=== PATIENT | female | born 1985 | race Caucasian/White ===

== ENCOUNTER 2022-02-10 15:08 | Day surgery (SDC) | payer MEDICARE ==
[2022-02-10] MEDS ORDERED: Sodium Chloride 0.9(Preservative Free) 10 ML IJ ONE (15:09)
[2022-02-10] MEDS ORDERED: Xylocaine 1% Vial 30 ML PF IJ ONE (15:09)
[2022-02-10] MEDS ORDERED: Decadron 4 MG INJ IV ONE (15:09)
[2022-02-10] MEDS ORDERED: Lactated Ringers 1,000 ML IV ONE (19:31)
--- NOTE | 2022-02-10 20:39 | XRAY ---
Indication: Cervical MAYANK. Intraoperative fluoroscopy provided for 25 seconds. 2 digital spot images submitted for interpretation demonstrates midline posterior needle tip projecting just posterior to cervical thoracic junction. Small amount of contrast injected for needle tip placement. Correlate with intraoperative findings/report.
--- NOTE | 2022-02-11 08:55 | XRAY ---
29 seconds fluoroscopy time in surgery for cervical MAYANK.
== END 2022-02-10 18:42 | disposition home or self-care (01) ==
LOC: SDC-PAIN 15:08
PROVIDERS: ATTEND Psychiatry & Neurology Pain Medicine
DX: M54.12 Radiculopathy, cervical region (principal); Z79.899 Other long term (current) drug therapy
CPT/HCPCS: 62321; 72040; 77003; 84703; J1100; J2001; Q9966

== ENCOUNTER 2024-11-07 14:17 | Day surgery (SDC) | payer MEDICARE ==
[2024-11-07] MEDS ORDERED: Sodium Chloride 0.9(Preservative Free) 10 ML IJ ONE (14:18)
[2024-11-07] MEDS ORDERED: dexAMETHasone sodium phosphate IJ ONE (14:18)
[2024-11-07 15:15] LABS: HCG SERUM TEST NEGATIVE (NEGATIVE)
[2024-11-07] MEDS ORDERED: propofoL IV ONE (16:03)
--- NOTE | 2024-11-07 16:54 | XRAY ---
24 seconds of fluoroscopy was used in surgery for a right L4-S1 transforaminal MAYANK.
--- NOTE | 2024-11-08 09:06 | XRAY ---
24 seconds of fluoroscopy was used in surgery for a right L4-S1 transforaminal MAYANK.
== END 2024-11-07 16:46 | disposition home or self-care (01) ==
LOC: SDC-PAIN 14:17
PROVIDERS: ATTEND Psychiatry & Neurology Pain Medicine
DX: M54.16 Radiculopathy, lumbar region (principal)
CPT/HCPCS: 36415; 72100; 77003; 84703; J1100; J2704

== ENCOUNTER 2025-01-31 10:14 | Day surgery (SDC) | payer MEDICARE ==
[2025-01-31] MEDS: TYLENOL EXTRA STRENGTH 500 MG PO ONE (10:25)
[2025-01-31] MEDS: Decadron 4 MG PO ONE (10:26)
[2025-01-31] MEDS: celeBREX 100 MG PO ONE (10:26)
[2025-01-31] MEDS: CEFAZOLIN 2 GM/100 ML NaCl 2 GM/100 ML IVPB IV SCH (10:26)
[2025-01-31] MEDS: NEURONTIN PO ONE (10:26)
[2025-01-31] MEDS: Lactated Ringers 1,000 ML IV SCH (10:26)
[2025-01-31 10:52] LABS: Hematocrit 44.3 % (34.1-44.9); Hemoglobin 14.4 g/dL (11.2-15.7); Mean Cell Volume 86.2 fL (79.4-94.8); Mean Corpuscular Hgb Concent. 32.5 g/dL (32.2-35.5); Mean Platelet Volume 9.4 fL (9.4-12.3); Platelet Count 289 x10^3/uL (182-369); Red Blood Count 5.14 x10^6/uL (3.93-5.22); Red Cell Distribution Width 12.9 % (11.7-14.4); White Blood Count 6.7 x10^3/uL (3.98-10.04)
[2025-01-31 11:21] LABS: ALBUMIN 4.3 g/dL (3.5-5.0); ANION GAP 14.4 MEQ/L (5-15); BILIRUBIN,TOTAL 0.4 mg/dL (0.2-1.3); Calcium 9.3 mg/dL (8.4-10.2); Creatinine 1 0.63 mg/dL (0.52-1.04); Direct Bilirubin 0.2 mg/dL (0.0-0.4); EST GLOMERULAR FILTRATION RATE 115.7 ML/MIN; HCG SERUM TEST NEGATIVE (NEGATIVE); Potassium 4.1 mmol/L (3.5-5.1); Total Protein 7.2 g/dL (6.3-8.2)
[2025-01-31] MEDS ORDERED: EXPAREL 133 MG/10 ML VIAL IJ ONE (11:58)
[2025-01-31] MEDS ORDERED: Marcaine Mpf 0.5% Vial 30 Ml ONE (11:58)
[2025-01-31] MEDS ORDERED: Versed 2 MG/2 ML Injection ONE (12:05)
[2025-01-31] MEDS ORDERED: propofoL IV ONE ×2 (12:22→14:28)
[2025-01-31] MEDS ORDERED: Zofran 4 MG/2 ML VIAL ONE ×2 (12:25→15:54)
[2025-01-31] MEDS ORDERED: dexAMETHasone sodium phosphate ONE (12:25)
[2025-01-31] MEDS ORDERED: ROCURONIUM BROMIDE IV ONE (12:25)
[2025-01-31] MEDS ORDERED: Epinephrine Preservative Free 1 MG/ML ONE (13:14)
[2025-01-31] MEDS ORDERED: SUBLIMAZE 100 MCG/2 ML ONE ×2 (13:36→15:14)
[2025-01-31] MEDS ORDERED: BRIDION 200MG/2ML IV ONE (13:42)
--- NOTE | 2025-01-31 14:09 | XRAY ---
Indication: Right ankle arthroscopy with synovectomy, repair of osteochondral defect, subtalar joint arthrotomy, and peroneal tendon debridement. Intraoperative fluoroscopy provided for 13 seconds. 4 digital spot images submitted for interpretation demonstrates manual manipulation ankle joint. Correlate with intraoperative findings/report.
[2025-01-31] MEDS ORDERED: Lactated Ringers 1,000 ML IV ONE (14:32)
--- NOTE | 2025-01-31 15:33 | XRAY ---
13 seconds of fluoroscopy were used in surgery for a right ankle arthroscopy with complete synovectomy, repair of osteochondral defect, subtalar joint open arthrotomy, peroneal tendon debridement, and gastrocnemius recession.
[2025-01-31] MEDS ORDERED: DILAUDID 0.5 MG/0.5 ML SYRINGE ONE (15:34)
[2025-01-31 16:20] VITALS: TEMP 98.3
[2025-01-31 16:39] VITALS: BP 125/79; PULSE 101; RESP 20; O2SAT 98
--- NOTE | 2025-02-01 12:39 | OP ---
SURGERY DATE/TIME: 01/31/2025 PREOPERATIVE DIAGNOSES: 1) Right ankle pain. 2) 3) Osteochondral defect. 4) Subtalar joint loose bodies. 5) Peroneus brevis tendonitis. 6) Peroneus longus tenosynovitis. 7) Gastrocnemius equinus. 8) Calcaneal exostosis. POSTOPERATIVE DIAGNOSES: 1) Right ankle pain. 2) 3) Osteochondral defect. 4) Subtalar joint loose bodies. 5) Peroneus brevis tendonitis. 6) Peroneus longus tenosynovitis. 7) Gastrocnemius equinus. 8) Calcaneal exostosis. 9) Low-lying muscle belly of peroneus brevis. PROCEDURES: 1) Ankle arthroscopy with complete synovectomy. 2) Ankle arthroscopy with microfracture of osteochondral defect x2, talus. 3) Subtalar joint arthrotomy. 4) Peroneus brevis tendon debridement. 5) Peroneus longus tenosynovectomy. 6) Gastrocnemius recession. 7) Calcaneal exostectomy. SURGEON: George Serrano DPM ASSISTANTS: BETINA Anne; Jody Brock, [employer] Supervisor; and Adrian Prajapati NP-C. ANESTHESIA: General plus a preoperative popliteal and saphenous block. See anesthesia report for details. HEMOSTASIS: Thigh tourniquet set to 300 mmHg for a total of 55 total tourniquet minutes. ESTIMATED BLOOD LOSS: Approximately 5 mL. MATERIALS: 4-0 Monocryl, 3-0 nylon. INJECTABLES: See anesthesia report for details. INDICATIONS: The patient is a very pleasant 39-year-old female who was seen by a nurse practitioner for several months prior to presenting to my service. She did have an MRI which was obtained, demonstrating some osteochondral defects to the anteromedial and central portions of the tibiotalar joint on the talar side. She was having a significant amount of pain to the ankle joint, as well as to the lateral aspect of the ankle, likely secondary to compensation and mechanical injury of the peroneal tendons. As a result, stress testing was performed in clinic, demonstrating no significant laxity; however, we did discuss this as a possibility of addressing surgically intraoperatively. The patient was made aware of all options and decided to proceed due to the timeline of pain and discomfort, as well as failure of conservative therapy, to proceed with surgical interventions. All risks, complications, and benefits of surgical intervention were discussed including, but not limited to, infection, hematoma, seroma, possibility of delayed wound healing, non-wound healing, and possible failure of surgical interventions. Plenty of time was allowed for the patient to ask questions, which were answered to her apparent satisfaction. It is at this time we decided to proceed. DESCRIPTION OF PROCEDURE AND FINDINGS: Patient was brought into the PACU prior to the procedure and provided a popliteal and saphenous block. Once the block took effect, the patient was brought into the operating room and placed on the operating room table in the supine position. General anesthesia was administered until the patient was adequately sedated. A well-padded thigh tourniquet was applied to the patient's right thigh, and the tourniquet was set to 300 mmHg. The right lower extremity was prepped and draped in the typical sterile fashion and lowered onto the surgical field at this time. At this time, attention was directed to the medial and lateral malleolus, as well as a palpable dell at the anterior aspect of the right ankle where landmarks were identified utilizing a skin marker. Utilizing the skin marker, the lines were connected, and our entry sites for anteromedial and anterolateral portal sites were drawn out. At the medial aspect of the tibialis anterior tendon, an 18-gauge needle with 50 mL of lactated Ringer's was injected at the anteromedial portal site with the characteristic dorsiflexion of the ankle joint. Once this occurred, an 11 blade was utilized to make a skin incision which was carried down to the level of the capsule with a curved mini hemostat to puncture the anterior ankle capsule. Once this was performed, a blunt obturator with trocar was introduced into the ankle joint. The obturator was then removed, and then a 4.0 mm 30-degree straight camera was introduced and inspection of the joint took place. Immediately, a significant amount of synovitis was encountered at the anterior capsule. Once this was inspected, a shaver was introduced after an incision with an 11 blade and a blunt dissection down to the level of the lateral capsule with a curved mini. A 3.4 mm shaver was then introduced into the portal and the synovectomy took place of points of interest to the lateral aspect of the ankle joint as well as the lateral gutter. The low-lying AITFL ligament was debrided, also known as the [place] ligament. From that standpoint, attention was directed medially to the medial gutter where a complete synovectomy was done. It was at the medial aspect of the talar side of the joint where an osteochondral defect was encountered. Due to the james of the fluid, the osteochondral defect was obviously lifted and a loose body. From that standpoint, decision was made to proceed with probing the whole entire area over the medial and central aspects of the talar OCDs that were seen on MRI had gouges within the cartilage and delaminations. Probe was then pressed into the cartilage and was able to be pressed to the subchondral bone. At this time, decision was made to proceed with the microfracture of the osteochondral defect where first the degenerated cartilage was shaved, and then utilizing a 30-degree chondral pick, exploration/microfracture were carried down to the level of the subchondral plate until a small oil drop was seen, indicating we had accessed the bone marrow. From that standpoint, the shaver was brought back in, and further debridement took place of the anterior, medial, lateral, and posterior aspects of the ankle joint. Once this occurred, the scope was withdrawn from the joint. An Esmarch was utilized to exsanguinate the leg. At this time, stress views were taken of an anterior drawer and a talar tilt, of which neither was positive. From that standpoint, we moved on to the peroneal tendons where a linear incision was made at the posterior one-third of the fibula just above the superior peroneal retinaculum and extending the path of the peroneus brevis tendon. On inspection of the peroneus brevis, there did look to be a very low-lying and robust muscle belly on the peroneus brevis which was resected. It was noted that when the foot was pulled into an inverted position that this did overstuff the superior peroneal retinaculum leading to some pathology. This was debrided. The tendon was inspected. There was flattening of the peroneus brevis tendon at the posterior aspect of the fibula, however, no significant tears or significant tendon degeneration other than the low-lying muscle belly. The peroneus longus was inspected, and there was a significant amount of tenosynovitis that was noted surrounding the tendon sheath that once incised, a significant amount of inflamed synovial fluid was released from this structure. Attention was then directed to the subtalar joint where a 15 blade was utilized to make an incision, and once again, a significant amount of inflamed synovial fluid was encountered. There were some loose bodies at the lateral aspect of the posterior facet that were retrieved utilizing a rongeur. Once this occurred, copious amounts of sterile saline were utilized to flush the surgical site. The lateral wall of the calcaneus was inspected, and the septum the peroneus brevis and peroneus longus at the lateral wall of the calcaneus was calcified and causing some mechanical irritation to the peroneus brevis. From that standpoint, decision was made to resect the septum, which was carried out utilizing a rongeur and a 15 blade. This was hand rasped down, and then bone wax was applied to the lateral aspect of the calcaneal wall. The small amount of degradation of the peroneus brevis was repaired utilizing 4-0 Monocryl at this time. Once this was performed, range of motion was checked, and it did look as though there was nothing impinging in the superior peroneal retinaculum or the lateral ankle ligaments. Subtalar joint was free of any loose bodies that were encountered previously. From that standpoint, once again, the patient was assessed with the foot and knee in a dorsiflexed position as well as extended at the level of the knee, showing her gastrocnemius equinus. We did decide to proceed with a gastrocnemius recession, which was carried out at the palpable dell at the posterior aspect of the posteromedial calf where a linear incision was made approximately 2 cm to 3 cm in length. Once this was carried down to the fascial layer, the fascial layer was incised, and blunt dissection was carried out to the level of the gastroc aponeurosis. Once encountered, a pediatric speculum was then introduced into the site and turned 90 degrees. Looking into this deficit and being careful not to damage the sural nerve on the opposite end, a 10 blade was utilized to incise the crural fascia with hemorrhaging of the gastrocnemius muscle belly as we resected the aponeurosis. Once this was performed, copious amounts of sterile saline were utilized to flush all of the surgical sites. A 4-0 Monocryl and 2-0 Vicryl were utilized in a simple interrupted buried-type fashion for closure of the wound sites subcutaneously. A 3-0 nylon was then utilized in a horizontal mattress-type fashion for closure of all the remaining sites. A dressing consisting of iodine, Adaptic, 4 x 4, Kerlix, ABD, and a well-padded posterior splint was applied to the patient's right lower extremity with the foot orthogonal relative to the longitudinal axis of the leg. Patient was then reversed from anesthesia and returned to the postoperative anesthesia care unit with vital signs stable and vascular status intact. Patient handled the anesthesia as well as the procedure without significant complication. Postoperative orders as indicated in the patient's discharge chart.
== END 2025-01-31 17:15 | disposition home or self-care (01) ==
LOC: SDC 10:14
PROVIDERS: ATTEND Podiatrist Foot & Ankle Surgery
DX: M76.71 Peroneal tendinitis, right leg (principal); M79.671 Pain in right foot; M25.571 Pain in right ankle and joints of right foot; D16.31 Benign neoplasm of short bones of right lower limb; M21.371 Foot drop, right foot; M25.471 Effusion, right ankle; M95.8 Other specified acquired deformities of musculoskeletal system; M62.461 Contracture of muscle, right lower leg; M21.621 Bunionette of right foot; M77.31 Calcaneal spur, right foot; M21.961 Unspecified acquired deformity of right lower leg; M24.071 Loose body in right ankle
CPT/HCPCS: 27658; 27680; 27687; 28050; 28118; 29891; 29898; 36415; 73610; 76000; 76937; 80053; 82248; 84703; 85027; J0171; J0666; J0690; J1100; J1171; J2250; J2405; J2704; J3010; A9270-GY

== ENCOUNTER 2025-06-26 12:30 | Day surgery (SDC) | payer MEDICARE ==
[2025-06-26] MEDS ORDERED: methylPREDNISolone acetate IM ONE (12:31)
[2025-06-26] MEDS ORDERED: LIDOCAINE HCL 2% 100 MG/5 ML IJ ONE (12:31)
[2025-06-26 13:08] LABS: HCG URINE TEST NEGATIVE (NEGATIVE)
[2025-06-26] MEDS ORDERED: propofoL IV ONE (14:59)
--- NOTE | 2025-06-26 16:48 | XRAY ---
Indication: Bilateral L4-S1 MBB. Intraoperative fluoroscopy provided for 16 seconds. Single digital spot image submitted for interpretation demonstrates posterior needle tips projecting over expected left and right L4-S1 nerve roots. Correlate with intraoperative findings/report.
[2025-06-26] MEDS ORDERED: Lactated Ringers 1,000 ML IV ONE (17:53)
--- NOTE | 2025-06-26 19:13 | XRAY ---
16 seconds of fluoroscopy were used in surgery for a bilateral L4-S1 MBB.
== END 2025-06-26 15:30 | disposition home or self-care (01) ==
LOC: SDC-PAIN 12:30
PROVIDERS: ATTEND Psychiatry & Neurology Pain Medicine
DX: M47.817 Spondylosis without myelopathy or radiculopathy, lumbosacral region (principal)

== ENCOUNTER 2025-07-31 11:48 | Day surgery (SDC) | payer MEDICARE ==
[2025-07-31] MEDS ORDERED: methylPREDNISolone acetate IM ONE (11:49)
[2025-07-31] MEDS ORDERED: BUPIVACAINE 0.5% VIAL IJ ONE (11:49)
[2025-07-31 12:25] LABS: HCG URINE TEST NEGATIVE (NEGATIVE)
[2025-07-31] MEDS ORDERED: propofoL IV ONE (13:15)
--- NOTE | 2025-07-31 14:49 | XRAY ---
Indication: Bilateral L4-S1 MBB. Intraoperative fluoroscopy provided for 18 seconds. Single digital spot image submitted for interpretation demonstrates posterior needle tips projecting over expected left and right L4-S1 nerve roots. Correlate with intraoperative findings/report.
[2025-07-31] MEDS ORDERED: Lactated Ringers 1,000 ML IV ONE (14:51)
--- NOTE | 2025-07-31 17:00 | XRAY ---
18 seconds of fluoroscopy was used in surgery for a bilateral L4-S1 MBB.
== END 2025-07-31 13:55 | disposition home or self-care (01) ==
LOC: SDC-PAIN 11:48
PROVIDERS: ATTEND Psychiatry & Neurology Pain Medicine
DX: M47.817 Spondylosis without myelopathy or radiculopathy, lumbosacral region (principal)

== ENCOUNTER 2025-08-15 11:28 | Day surgery (SDC) | payer MEDICARE ==
[2025-08-15] MEDS ORDERED: methylPREDNISolone acetate IM ONE (11:29)
[2025-08-15] MEDS ORDERED: LIDOCAINE HCL 1% 50 MG/5 ML VL IJ ONE (11:29)
[2025-08-15] MEDS ORDERED: BUPIVACAINE 0.5% VIAL IJ ONE (11:29)
[2025-08-15 11:42] LABS: HCG URINE TEST NEGATIVE (NEGATIVE)
[2025-08-15] MEDS ORDERED: propofoL IV ONE ×2 (12:54→13:03)
[2025-08-15] MEDS ORDERED: Lactated Ringers 1,000 ML IV ONE (13:17)
--- NOTE | 2025-08-15 14:53 | XRAY ---
Indication: Right L4-S1 RFA. Intraoperative fluoroscopy provided for 19 seconds. 4 digital spot images submitted for interpretation demonstrates posterior needle tips projecting over expected right L4-S1 nerve roots. Correlate with intraoperative findings/report.
--- NOTE | 2025-08-15 17:00 | XRAY ---
19 seconds of fluoroscopy was used in surgery for a right L4-S1 RFA.
== END 2025-08-15 13:37 | disposition home or self-care (01) ==
LOC: SDC-PAIN 11:28
PROVIDERS: ATTEND Psychiatry & Neurology Pain Medicine
DX: M47.817 Spondylosis without myelopathy or radiculopathy, lumbosacral region (principal)